=== PATIENT | female | born 1955 | race Caucasian/White ===

== ENCOUNTER 2022-08-22 05:02 | Day surgery (SDC) | payer OTHER ==
[2022-08-18 08:34] VITALS: BMI 25.7
[2022-08-22 10:13] VITALS: TEMP 97.5
[2022-08-22 10:44] VITALS: PULSE 65; RESP 15
[2022-08-22 10:47] VITALS: BP 121/50
== END 2022-08-22 10:50 | disposition home or self-care (01) ==
LOC: JASU-ENDO 05:02
PROVIDERS: ATTEND Student in an Organized Health Care Education/Training Program
PROC: 0DB78ZX Excision of Stomach, Pylorus, Via Natural or Artificial Opening Endoscopic, Diagnostic (ICD-10-PCS; 2022-08-22)
PROC: 0DB68ZX Excision of Stomach, Via Natural or Artificial Opening Endoscopic, Diagnostic (ICD-10-PCS; 2022-08-22)
PROC: 0DB28ZX Excision of Middle Esophagus, Via Natural or Artificial Opening Endoscopic, Diagnostic (ICD-10-PCS; 2022-08-22)
PROC: 0DB38ZX Excision of Lower Esophagus, Via Natural or Artificial Opening Endoscopic, Diagnostic (ICD-10-PCS; principal; 2022-08-22 09:00)
DX: K29.50 Unspecified chronic gastritis without bleeding (principal); I10 Essential (primary) hypertension
CPT/HCPCS: 88305-TC; 88342-TC